=== PATIENT | male | born 1995 | race Caucasian/White ===

== ENCOUNTER 2018-06-20 18:33 | Emergency (ER) | payer OTHER ==
[2018-06-20 18:55] VITALS: BP 139/77; PULSE 106; TEMP 98.4; BMI 18.3
--- NOTE | 2018-06-20 19:46 | PDOC ---
History of Present Illness - General History Source: Patient Exam Limitations: No Limitations - History of Present Illness Initial Comments: 06/20/18 19:57 Patient is a 22 year old male with no significant past medical history who presents to the ED with complaints of right thumb pain s/p avulsion that occured x6 days ago. 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 He reports being treated for right thumb avulsion, and wrapping it with gauze. Patient reports inspecting his wound this afternoon when he noticed the gauze being stuck on within the wound, prompting him to come into the ED for further evaluation. Denies chest pain, sob. Denies nausea,vomiting. Denies fevers, chills. Denies contact with sick individuals, out of state travelling. Denies dysuria, hematuria. Denies diarrhea, constipation. Denies any other symptoms. Allergies: None Social history: No smoking. No alcohol. No illicit drugs Surgical history: None PMD: None <Kulwant Leonardo - Last Filed: 06/20/18 19:57> <Juliane Ambrocio - Last Filed: 06/21/18 05:52> - General Chief Complaint: Wound Stated Complaint: LACERATION /AVULSION RIGHT THUMB 1 WEEK AGO Time Seen by Provider: 06/20/18 19:13 Past History <Kulwant Leonardo - Last Filed: 06/20/18 19:57> - Past Medical History COPD: No Other medical history: DENIES - Immunization History Immunization Up to Date: Yes - Suicide/Smoking/Psychosocial Hx Smoking History: Never smoked Information on smoking cessation initiated: No Hx Alcohol Use: Yes (SOCIAL) Drug/Substance Use Hx: No <Juliane Ambrocio - Last Filed: 06/21/18 05:52> - Past Medical History Allergies/Adverse Reactions: Allergies Allergy/AdvReac Type Severity Reaction Status Date / Time No Known Allergies Allergy Unverified 06/20/18 18:36 Home Medications: Ambulatory Orders NK [No Known Home Medication] 06/20/18 Review of Systems - Review of Systems Able to Perform ROS?: Yes Comments:: 06/20/18 19:57 GENERAL/CONSTITUTIONAL: No fever or chills. No weakness. HEAD, EYES, EARS, NOSE AND THROAT: No change in vision. No ear pain or discharge. No sore throat. CARDIOVASCULAR: No chest pain or shortness of breath. RESPIRATORY: No cough, wheezing, or hemoptysis. GASTROINTESTINAL: No nausea, vomiting, diarrhea or constipation. GENITOURINARY: No dysuria, frequency, or change in urination. MUSCULOSKELETAL: +right thumb pain. No joint or muscle swelling or pain. No neck or back pain. SKIN: No rash NEUROLOGIC: No headache, vertigo, loss of consciousness, or change in strength/ sensation. ENDOCRINE: No increased thirst. No abnormal weight change. HEMATOLOGIC/LYMPHATIC: No anemia, easy bleeding, or history of blood clots. ALLERGIC/IMMUNOLOGIC: No hives or skin allergy. <Kulwant Leonardo - Last Filed: 06/20/18 19:57> *Physical Exam - Vital Signs Last Vital Signs Temp Pulse Resp BP Pulse Ox 98.4 F 106 H 16 139/77 97 06/20/18 18:36 06/20/18 18:36 06/20/18 18:36 06/20/18 18:36 06/20/18 18:36 - Physical Exam Comments: 06/20/18 19:58 GENERAL: Awake, alert, and fully oriented, in no acute distress HEAD: No signs of trauma EYES: PERRLA, EOMI, sclera anicteric, conjunctiva clear ENT: Auricles normal inspection, hearing grossly normal, nares patent, oropharynx clear without exudates. Moist mucosa NECK: Normal ROM, supple, no lymphadenopathy, JVD, or masses LUNGS: Breath sounds equal, clear to auscultation bilaterally. No wheezes, and no crackles HEART: Regular rate and rhythm, normal S1 and S2, no murmurs, rubs or gallops ABDOMEN: Soft, nontender, normoactive bowel sounds. No guarding, no rebound. No masses EXTREMITIES: +.5 by .5 cm full thickness skin avulsion of the radial aspect of the distal phalanx right thumb. No surrounding erythema edema or tenderness. No lymphangitic streaking. No pain passive or active with movement of finger Normal range of motion, no edema. No clubbing or cyanosis. No cords, erythema, or tenderness NEUROLOGICAL: Cranial nerves II through XII grossly intact. Normal speech, normal gait SKIN: Warm, Dry, normal turgor, no rashes or lesions noted. <Kulwant Leonardo - Last Filed: 06/20/18 19:57> - Vital Signs Last Vital Signs Temp Pulse Resp BP Pulse Ox 98.4 F 106 H 16 139/77 97 06/20/18 18:36 18 18:36 18 18:36 06/20/18 18:36 06/20/18 18:36 <Juliane Ambrocio - Last Filed: 06/21/18 05:52> Moderate Sedation - Procedure Monitoring Vital Signs: Procedure Monitoring Vital Signs Temperature 98.4 F 06/20/18 18:36 Pulse Rate 106 H 06/20/18 18:36 Respiratory Rate 16 06/20/18 18:36 Blood Pressure 139/77 06/20/18 18:36 O2 Sat by Pulse Oximetry (%) 97 06/20/18 18:36 <Kulwant Leonardo - Last Filed: 06/20/18 19:57> - Procedure Monitoring Vital Signs: Procedure Monitoring Vital Signs Temperature 98.4 F 06/20/18 18:36 Pulse Rate 106 H 06/20/18 18:36 Respiratory Rate 16 06/20/18 18:36 Blood Pressure 139/77 06/20/18 18:36 O2 Sat by Pulse Oximetry (%) 97 06/20/18 18:36 <Juliane Ambrocio - Last Filed: 06/21/18 05:52> Progress Note - Progress Note Progress Note: Documentation has been prepared under my direction and personally reviewed by me in its entirety. I attest that this documented accurately reflects all work, treatment, procedures and medical decision making performed by me. <Juliane Ambrocio - Last Filed: 06/21/18 05:52> Medical Decision Making - Medical Decision Making As noted above, this 22-year-old man presents with injury(skin avulsion) of the tip of the right thumb sustained 6 days ago. The patient was concerned because a small area of gauze was adherent to the wound. Exam as noted Wound was soaked in dilute Betadine solution prior to examination Using sterile technique, small piece of gauze was easily removed using forceps. The area underneath gauze was healing well without evidence of infection. Wound was cleansed using sterile normal saline and small piece of Xeroform placed on the wound. This was covered with sterile 2 x 2 gauze. The patient will continue his daily dressing changes and was instructed to cut away any dry areas of Xeroform as wound healed. Since he has no wound check follow-up, he was given Dr. Mosqueda (network contractor for hand surgery) referral information with whom he should follow-up within the next 5-7 days. If he has any evidence of wound infection prior to that, he should return to the ER <Juliane Ambrocio - Last Filed: 06/21/18 05:52> *DC/Admit/Observation/Transfer - Attestations Scribe Attestion: 06/20/18 19:58 Documentation prepared by Kulwant Leonardo, acting as medical claims representative for Juliane Ambrocio MD. <Kulwant Leonardo - Last Filed: 06/20/18 19:57> <Juliane Ambrocio - Last Filed: 06/21/18 05:52> Diagnosis at time of Disposition: Avulsion of skin of finger Qualifiers: Encounter type: initial encounter Qualified Code(s): S61.209A - Unspecified open wound of unspecified finger without damage to nail, initial encounter - Discharge Dispostion Disposition: HOME Condition at time of disposition: Stable - Referrals Referrals: Rodríguez Mosqueda MD [Staff Physician] - - Patient Instructions Printed Discharge Instructions: DI for Avulsion Laceration (Not Requiring Sutures) Additional Instructions: continue daily dressing changes of wound as previously return to ER if you have increased pain/swelling/ redness of area Call Dr Mosqueda(hand surgeon) office tomorrow to arrange followup wound check within 1 week
== END 2018-06-20 19:51 | disposition home or self-care (01) ==
LOC: FER 18:33
DX: Z48.01 Encounter for change or removal of surgical wound dressing (principal)
CPT/HCPCS: 99282-25